=== PATIENT | male | born 2000 | race Hispanic/Latino ===

== ENCOUNTER 2020-02-17 22:35 | Emergency (ER) | payer BC, SELFPAY ==
[2020-02-17 23:27] LABS: Bilirubin Negative (Negative); Blood, Urine Negative (Negative); Clarity Clear (Clear); Glucose, Urine (Dipstick) Normal (Negative); Ketone, Urine Negative (Negative); Leukocyte Negative Leu/uL (Negative); Nitrite Negative (Negative); Protein, Urine (Dipstick) Negative (Neg-Trace); Specific Gravity, Urine 1.007 (1.002-1.036); Urobilinogen Normal mg/dL (Less than 2)
[2020-02-17 23:37] LABS: Amphetamine Not Detected (NotDetected); Barbiturates Screen Not Detected (NotDetected); Benzodiazepine Screen Not Detected (NotDetected); Cocaine Metabolite Screen Not Detected (NotDetected); Medtox Control Line Valid? VALID (VALID); Medtox Reader # READER 1; Methadone Not Detected (NotDetected); Methamphetamine Not Detected (NotDetected); Opiate Screen Not Detected (NotDetected); Oxycodone Screen Not Detected (NotDetected); Phencyclidine (PCP) Not Detected (NotDetected); THC/Cannabinoid Screen Not Detected (NotDetected); Tricyclic Screen Not Detected (NotDetected)
[2020-02-18 00:03] LABS: #Lymphocytes 1.4 thou/uL (1.20-3.40); #Monocytes 0.3 thou/uL (0.11-0.59); #Neutrophils 8.5 thou/uL (1.40-6.50); %Basophils 0.1 % (0.0-1.0); %Eosinophils 0.2 % (0.0-10.0); %Lymphocytes 13.8 % (28.0-48.0); %Monocytes 3.2 % (0.0-4.0); %Neutrophils 82.6 % (31.0-61.0); Hemoglobin 16.4 g/dL (14.0-18.0); Mean Corpuscular Hemoglobin 28.2 pg (25.0-35.0); Mean Corpuscular Volume 82.9 fL (78.0-98.0); Platelet Count 291 thou/uL (130-400); RBC Distribution Width 12.2 % (11.5-14.5); Red Blood Cell (RBC) Count 5.83 mill/uL (4.00-5.20); White Blood Cell (WBC) Count 10.3 thou/uL (4.8-10.8)
[2020-02-18 00:18] LABS: Acetaminophen Less than 6.0 mcg/mL (10.0-30.0); Alcohol 138 mg/dL (Less than 10); Salicylate Less than 8.0 mg/dL (15.0-30.0)
[2020-02-18 00:19] LABS: ALT (SGPT) 74 U/L (8-55); AST (SGOT) 51 U/L (5-34); Albumin 4.7 g/dL (3.5-5.0); Alkaline Phosphatase 122 U/L (50-130); Anion Gap 19 mmol/L (10-20); BUN (Urea Nitrogen) 6 mg/dL (8.9-20.6); Bilirubin, Total 0.3 mg/dL (0.2-1.2); Calc. Creatinine Clearance 0 mL/min (70-130); Calcium 8.9 mg/dL (7.8-10.44); Carbon Dioxide 19 mmol/L (22-29); Chloride 106 mmol/L (98-107); Estimated GFR-MDRD Greater than 90; Globulin 3.1 g/dL (2.4-3.5); Glucose 97 mg/dL (70-105); Potassium 3.8 mmol/L (3.5-5.1); Protein, Total 7.8 g/dL (6.0-8.3); Sodium 140 mmol/L (136-145)
== END 2020-02-18 13:50 ==
LOC: ERS 22:35
DX: R45.851 Suicidal ideations (principal)
CPT/HCPCS: 36415; 80053; 80306; 80307; 81003; 85025; 99285

== ENCOUNTER 2023-03-23 13:54 | Emergency (ER) | payer SELFPAY ==
[2023-03-23] MEDS ORDERED: Ketorolac Tromethamine 30 MG/ML VIAL ONE (14:30)
== END 2023-03-23 14:54 | disposition home or self-care (01) ==
LOC: ERS 13:54
DX: M25.512 Pain in left shoulder (principal); M54.2 Cervicalgia
CPT/HCPCS: 96372; 99283; J1885